=== PATIENT | male | born 1970 | race Caucasian/White ===

== ENCOUNTER 2019-11-18 09:31 | Inpatient (IN) | payer MEDICAID, OTHER ==
[~2019-11-18] VITALS: Ht 160 cm; Wt 83.9 kg
[~2019-11-18 09:31] MED LIST: DIVA500T1 PO; WARF4TAB PO
--- NOTE | 2019-11-18 09:34 | NUR ---
Patient ambulated to bed 6. RN evaluating patient at bedside.
[2019-11-18 09:38] VITALS: BP 132/75
[2019-11-18] MEDS ORDERED: NACL 0.9% 1,000 ML IV ONE ×2 (09:45→10:35)
--- NOTE | 2019-11-18 09:55 | NUR ---
clinical laboratory technician at bedside.
[2019-11-18 10:00] LABS: BASOPHILS # (AUTO) 0.1 K/uL (0.00-0.22); BASOPHILS % (AUTO) 1.1 % (0.0-2.0); EOSINOPHILS # (AUTO) 0.1 K/uL (0-0.4); EOSINOPHILS % (AUTO) 1.5 % (0.0-4.0); HEMATOCRIT 43.7 % (36-52); HEMOGLOBIN 14.5 g/dL (12.0-18.0); LYMPHOCYTES # (AUTO) 1.6 K/uL (2.0-11.5); LYMPHOCYTES % (AUTO) 24.4 % (20.5-51.1); MEAN CORPUSCULAR HEMOGLOBIN 31 pg (27-31); MEAN CORPUSCULAR HGB CONC 33 g/dL (33-37); MONOCYTES # (AUTO) 0.7 K/uL (0.8-1.0); MONOCYTES % (AUTO) 10.5 % (1.7-9.3); NEUTROPHILS # (AUTO) 4.1 K/uL (1.8-7.7); NEUTROPHILS % (AUTO) 62.5 % (42.2-75.2); PLATELET COUNT (AUTO) 196 K/uL (140-450); RED BLOOD CELL COUNT(AUTO) 4.75 MIL/uL (4.20-6.10); RED CELL DISTRIBUTION WIDTH 15.1 % (11.6-13.7); WHITE BLOOD COUNT (AUTO) 6.6 K/uL (4.8-10.8)
--- NOTE | 2019-11-18 10:00 | NUR ---
49 YO MALE REFERRED FROM CLINIC FOR AFIB SYMPTOMS. UPON ARRIVAL PT WAS AFIB BUT CONVERTED OUT. 20G IV STARTED IN LEFT AC. PT STATES HIS PAIN IS 0/10. PT TAKES MEDS AT HOME FOR ANXIETY WELL HEART PROBLEMS. PT IS IPOLAR AND HAS A HX OF CABG IN 2009. PT IS RESTING IN BED AT THIS TIME WITH NO PAIN.
[2019-11-18 10:18] LABS: ALBUMIN 3.1 g/dL (3.4-5.0); ANION GAP 12.1 (8-16); CARBON DIOXIDE 25.7 mmol/L (21-32); CREATININE 0.9 mg/dL (0.6-1.3); POTASSIUM 3.8 mmol/L (3.5-5.1); TOTAL BILIRUBIN 0.5 mg/dL (0.0-1.0)
--- NOTE | 2019-11-18 10:48 | NUR ---
PT AMBULATORY TO THE RESTROOM
--- NOTE | 2019-11-18 12:04 | NUR ---
Dr. Robles is evaluating the patient at bedside.
[2019-11-18] MEDS ORDERED: ADENOSINE 6 MG/2 ML VIAL IVP ONE ×3 (12:07→12:10)
--- NOTE | 2019-11-18 12:17 | NUR ---
ADENOSINE GIVEN PER MD ORDERS. Addendum: 11/18/19 at 1220 by MEDHM ADENOSINE GIVEN PER MD ORDERS. NO ADVERSE REACTIONS. Addendum: 11/18/19 at 1224 by MEDHM ADENOSINE GIVEN 6MG AND 12MG PER MD ORDERS. MD AND 2 RNS AT BEDSIDE NO ADVERSE REACTIONS.
[2019-11-18] MEDS ORDERED: AMIODARONE IV ONE (12:25)
[2019-11-18] MEDS ORDERED: DEXTROSE 5% IV ONE (12:25)
[2019-11-18] MEDS ORDERED: AMIODARONE IV SCH (12:43)
[2019-11-18] MEDS ORDERED: DEXTROSE 5% IV SCH (12:43)
--- NOTE | 2019-11-18 13:00 | NUR ---
RECEIVED PT FROM ED NURSES. PT TRANSFERRED INTO BED. TELE MONITOR APPLIED, WRIST BANDS APPLIED, WELL ALLERGY BAND. MRSA SWAB COLLECTED AND SENT. WENT OVER ADMISSION HISTORY WITH PT. PT TOLERATED WELL. PT CHANGED INTO BLUE GOWN. PT RESTING IN BED. ABLE TO MAKE NEEDS KNOWN. RESPIRATIONS EVEN AND UNLABORED WITH NO SOB OR RESPIRATORY DISTRESS. SKIN WARM AND DRY TO TOUCH. VITAL SIGNS UPON ADMISSION: 116/64 BP, 97.8 TEMP, 96% SPO2 ON ROOM AIR. 120 HR. SAFETY MEASURES IN PLACE. WILL CONTINUE TO MONITOR.
[2019-11-18] MEDS: NACL 0.9% 1,000 ML IV SCH (13:18)
[2019-11-18] MEDS ORDERED: ACETAMINOPHEN 325 MG TAB PO PRN (13:20)
[2019-11-18] MEDS ORDERED: DOCUSATE SODIUM 100 MG GELCAP PO PRN (13:20)
[2019-11-18] MEDS ORDERED: ONDANSETRON 4 MG/2 ML VIAL IM/IVP PRN (13:20)
[2019-11-18] MEDS ORDERED: HYDROcodone/APAP 7.5/325 MG 1 TAB PO PRN (13:20)
[2019-11-18] MEDS ORDERED: ATA25 PO (13:46)
[2019-11-18] MEDS ORDERED: HAL5 PO (13:47)
[2019-11-18] MEDS ORDERED: ABI10 PO (13:48)
[2019-11-18] MEDS ORDERED: BENZ2TAB27 PO (13:49)
[2019-11-18] MEDS ORDERED: DIVA250E1 PO ×3 (13:50→17:47)
[2019-11-18 14:00] VITALS: BP 116/64
[2019-11-18 14:00] LABS: BARBITURATE, URINE NEG. ng/ml (NEG <=200); BENZODIAZEPINE, URINE NEG. ng/mL (NEG <=200); CANNABINOID, URINE NEG. ng/mL (NEG <=50); COCAINE, URINE NEG. ng/mL (NEG <=300); OPIATE, URINE NEG. ng/mL (NEG <=2000); PHENCYCLIDINE SCREEN,URINE NEG. ng/mL (NEG <=25)
--- NOTE | 2019-11-18 14:11 | NUR ---
Patient will be admitted to care of DR SAEZ. [facility]. Will go to room 122B. Belongings list completed. Report to MELI DUVAL.
[2019-11-18 14:44] LABS: CHOL/HDL RATIO 5.9 (1-4.5); FREE T4 (FREE THYROXINE) 1.14 ng/dL (0.76-1.46); MAGNESIUM 1.4 mg/dL (1.8-2.4); PHOSPHORUS 2.4 mg/dL (2.5-4.9); THYROID STIMULATING HORMONE 1.46 uIU/mL (0.34-3.74)
--- NOTE | 2019-11-18 15:15 | NUR ---
PT RESTING IN BED UPON ARRIVAL. ABLE TO MAKE NEEDS KNOWN. RESPIRATIONS EVEN AND UNLABORED WITH NO SOB OR RESPIRATORY DISTRESS. SKIN WARM AND DRY TO TOUCH. SAFETY MEASURES IN PLACE. WILL CONTINUE TO MONITOR.
[2019-11-18 16:00] VITALS: BP 124/80
[2019-11-18] MEDS ORDERED: MAG SULF 2000 MG/WATER PREMIX 50 ML IV SCH (17:00)
[2019-11-18] MEDS ORDERED: SODIUM PHOS / POTASSIUM PHOS 1 PKT PDR PO SCH (17:00)
[2019-11-18] MEDS ORDERED: INSULIN LISPRO SLIDING SCALE 100 UNITS/ML VIAL SUBQ PRN (17:05)
[2019-11-18] MEDS ORDERED: DEXTROSE 50% 50 ML SYR IVP PRN (17:05)
--- NOTE | 2019-11-18 17:27 | NUR ---
HOURLY ROUNDING. FAMILY AT BEDSIDE. PT RESTING IN CHAIR. ABLE TO MAKE NEEDS KNOWN. RESPIRATIONS EVEN AND UNLABORED WITH NO SOB OR RESPIRATORY DISTRESS. SKIN WARM AND DRY TO TOUCH. SAFETY MEASURES IN PLACE. WILL CONTINUE TO MONITOR.
[2019-11-18] MEDS ORDERED: METOPROLOL 5 MG/5 ML VIAL IV SCH (17:30)
[2019-11-18] MEDS ORDERED: BENZ-203 PO (17:47)
[2019-11-18] MEDS ORDERED: WARF-82 PO (17:47)
[2019-11-18] MEDS ORDERED: WARF4TAB PO (17:47)
--- NOTE | 2019-11-18 18:02 | NUR ---
ADMINISTERED SCHED MED PRESCRIBED PER MD ORDER. PT TOLERATED WELL. MEDICATION EDUCATION PERFORMED. PT VERBALIZED UNDERSTANDING. SAFETY MEASURES IN PLACE. WILL CONTINUE TO MONITOR.
[2019-11-18 18:40] LABS: PROTHROMBIN TIME 12.7 secs (10.8-13.4)
--- NOTE | 2019-11-18 19:15 | NUR ---
ENDORSED AT BEDSIDE WITH NIGHTSHIFT NURSE. PT RESTING IN BED UPON ARRIVAL. RESPIRATIONS EVEN AND LABORED WITH NO SOB OR RESPIRATORY DISTRESS. SKIN WARM AND DRY TO TOUCH. SAFETY MEASURES IN PLACE. PT IS STABLE
--- NOTE | 2019-11-18 19:16 | NUR ---
RECEIVED BEDSIDE REPORT FROM MELI DUVAL FOR CONTINUITY OF CARE. AO 0 X 3, BIPOLAR , AMBULATORY W/ STANDBY ASSIST. PT'S BP IS 135/85 HR= 116, AFEBRILE RR= 18. W/ LEFT AC G 20, PATENT W/ NS AT 20 ML/ HR. WAS HERE. INFORMED HER PLAN OF CARE, PLACED PT ON LOW BED. CALL LIGHT W/IN REACH.
--- NOTE | 2019-11-18 19:16 | NUR ---
RECEIVED BEDSIDE REPORT FROM MELI DUVAL FOR CONTINUITY OF CARE. AO X 3, FORGETFUL. PT'S BP IS 135/85 HR= 116, AFEBRILE RR= 18; PT WITH IV ON THE R AC G 20, PATENT AND INTACT. PT IS A FALL RISK, ON FALL RISK PRECAUTION. PLACED IN A LOW BED POSITION. CALL LIGHT WITHIN REACH. ORIENTED TO UNIT Addendum: 11/18/19 at 4060 by Loida Morton RN DELETE WRONG PT.
--- NOTE | 2019-11-18 19:30 | NUR ---
PT'S PHYSICAL ASSESSMENT AND HISTORY TAKEN, PT FORGETFUL. Addendum: 11/19/19 at 0004 by Loida Morton RN ISRAEL MEZA WRONG PATIENT
[2019-11-18 20:00] VITALS: BP_SYST 114; BP_SYST 145; BP_DIAS 72; BP_DIAS 85
[2019-11-18] MEDS ORDERED: WARFARIN 5 MG TAB PO SCH (20:00)
--- NOTE | 2019-11-18 20:16 | NUR ---
DR. HERNANDEZ WAS INFORMED THAT INR 1.26 HIGH, PT 12.7 N; APTT 27.[address] HERNANDEZ SAID TO GIVE THE COUMADIN 5 MG
[2019-11-18] MEDS: BLOOD GLUCOSE MONITORING 1 DEV DEV FS SCH (20:17)
[2019-11-18] MEDS ORDERED: HALOPERIDOL 5 MG TAB PO SCH (21:00)
[2019-11-18] MEDS ORDERED: BENZTROPINE 1 MG TAB PO SCH (21:00)
[2019-11-18] MEDS: ARIPiprazole 10 MG TAB PO SCH (21:04)
[2019-11-18] MEDS: hydrOXYzine HCL 25 MG TAB PO SCH (21:05)
[2019-11-18] MEDS: DIVALPROEX 250 MG TABEC PO SCH (21:05)
--- NOTE | 2019-11-18 21:23 | NUR ---
PT SLEEPING COMFORTABLY, NO COMPLAINTS AT THIS TIME
--- NOTE | 2019-11-18 21:23 | NUR ---
PHOTO TAKEN ON WOUNDS, INFORMED DR. HERNANDEZ. VERBALLY ORDERED ME TO PUT IN THE ORDERS FOR WOUNDS CARRIED OUT WOUND ORDERS Addendum: 11/18/19 at 2359 by Loida Morton RN DELETE- WRONG PATIENT
[2019-11-19] VITALS: BP 145/78
--- NOTE | 2019-11-19 02:00 | NUR ---
PT SLEEPING JUST ASKED FOR SOME WATER, NO COMPLAINTS AT THIS TIME. NO MORE TREMORS NOTED
[2019-11-19] MEDS: NACL 0.9% 1,000 ML IV SCH ×2 (04:50→22:38)
[2019-11-19 06:00] VITALS: BP 140/70
--- NOTE | 2019-11-19 06:00 | NUR ---
NO COMPLAINTS AT THIS TIME, PT SLEEPING COMFORTABLY
[2019-11-19 06:07] LABS: BASOPHILS # (AUTO) 0.1 K/uL (0.00-0.22); BASOPHILS % (AUTO) 0.7 % (0.0-2.0); EOSINOPHILS # (AUTO) 0.2 K/uL (0-0.4); EOSINOPHILS % (AUTO) 2.6 % (0.0-4.0); HEMATOCRIT 39.9 % (36-52); HEMOGLOBIN 13.1 g/dL (12.0-18.0); LYMPHOCYTES # (AUTO) 2.2 K/uL (2.0-11.5); LYMPHOCYTES % (AUTO) 26.4 % (20.5-51.1); MEAN CORPUSCULAR HEMOGLOBIN 31 pg (27-31); MEAN CORPUSCULAR HGB CONC 33 g/dL (33-37); MEAN CORPUSCULAR VOLUME 92.8 fL (80-94); MONOCYTES # (AUTO) 0.9 K/uL (0.8-1.0); MONOCYTES % (AUTO) 11.2 % (1.7-9.3); NEUTROPHILS # (AUTO) 4.8 K/uL (1.8-7.7); NEUTROPHILS % (AUTO) 59.1 % (42.2-75.2); PLATELET COUNT (AUTO) 181 K/uL (140-450); WHITE BLOOD COUNT (AUTO) 8.2 K/uL (4.8-10.8)
[2019-11-19 06:13] LABS: ANION GAP 12.8 (8-16); CARBON DIOXIDE 28.2 mmol/L (21-32); CREATININE 0.8 mg/dL (0.6-1.3)
[2019-11-19 06:13] LABS: T4 (THYROXINE) 7.9 ug/dL (4.5-12.0)
[2019-11-19 06:16] LABS: MAGNESIUM 1.7 mg/dL (1.8-2.4); PHOSPHORUS 2.7 mg/dL (2.5-4.9)
[2019-11-19 06:18] LABS: CHOL/HDL RATIO 5.4 (1-4.5)
[2019-11-19] MEDS: BLOOD GLUCOSE MONITORING 1 DEV DEV FS SCH ×4 (06:53→19:34)
[2019-11-19] MEDS ORDERED: MAG SULF 2000 MG/WATER PREMIX 50 ML IV SCH (07:00)
--- NOTE | 2019-11-19 07:20 | NUR ---
ENDORSED TO AM SHIFT NURSE, FOR CONTINUITY OF CARE. FOR DR. CÁRDENAS AND DR. CARVER CONSULT
--- NOTE | 2019-11-19 07:30 | NUR ---
REPORT RECEIVED FROM NIGHT NURSE CARRI. PT AWAKE A/O ABLE TO COMMUNICATE NEEDS. PT DENIES PAIN, CHEST PAIN OR SOB. NO S/S OF ACUTE DISTRESS NOTED, CALL LIGHT AND PERSONAL ITEMS WITHIN REACH, SAFETY AND PRECAUTIONS IN PLACE. WILL CONTINUE TO MONITOR.
[2019-11-19] MEDS ORDERED: LOVENOX 1MG/KG Q12H SUBQ SCH (07:50)
[2019-11-19 08:00] VITALS: BP 143/77
[2019-11-19] MEDS: ENOXAPARIN 80 MG/0.8 ML SYR SUBQ SCH ×2 (09:00→20:04)
[2019-11-19] MEDS: DIVALPROEX 250 MG TABEC PO SCH ×2 (09:11→20:05)
[2019-11-19] MEDS: BENZTROPINE 1 MG TAB PO SCH ×2 (09:11→20:03)
[2019-11-19] MEDS: ARIPiprazole 10 MG TAB PO SCH ×2 (09:11→20:03)
[2019-11-19] MEDS: hydrOXYzine HCL 25 MG TAB PO SCH (09:11)
[2019-11-19] MEDS: ASPIRIN 81 MG TAB.CHEW PO SCH (09:13)
--- NOTE | 2019-11-19 09:13 | NUR ---
PATIENT HAS BEEN SCREENED AND CATEGORIZED LOW NUTRITION RISK. PATIENT WILL BE SEEN WITHIN 7 DAYS OF ADMISSION. 2.10.[address]
--- NOTE | 2019-11-19 09:30 | NUR ---
PT AWAKE A/O ABLE TO COMMUNICATE NEEDS. NOTIFIED THAT PER MD HE WILL NEED TO PROVIDED A URINE SAMPLE FOR UA, PT AGREEABLE. PT DENIES PAIN, CHEST PAIN OR SOB AT THIS TIME. NO S/S OF ACUTE DISTRESS NOTED, CALL LIGHT AND PERSONAL ITEMS WITHIN REACH, SAFETY AND PRECAUTIONS IN PLACE. WILL CONTINUE TO MONITOR.
[2019-11-19] MEDS ORDERED: METOPROLOL 25 MG TAB PO SCH ×2 (09:50→18:00)
--- NOTE | 2019-11-19 10:30 | NUR ---
SPECIMEN FOR US COLLECTED AT DELIVERED TO LAB.
[2019-11-19 11:30] LABS: APPEARANCE,URINE CLEAR (CLEAR); BILIRUBIN,URINE NEGATIVE (NEGATIVE); BLOOD, URINE TRACE-I (NEGATIVE); COLOR,URINE YELLOW (YELLOW); LEUKOCYTE ESTERASE ,URINE NEGATIVE (NEGATIVE); NITRITE, URINE NEGATIVE (NEGATIVE); UGLUCOSE NEGATIVE (NEGATIVE)
--- NOTE | 2019-11-19 11:30 | NUR ---
PT REMAINS A/O, ABLE TO COMMUNICATE NEEDS. VISITORS AT BEDSIDE. PT APPEARS COMFORTABLE, DENIES PAIN, NO TREMORS NOTED, NO S/S OF ACUTE DISTRESS NOTED, CALL LIGHT AND PERSONAL ITEMS WITHIN REACH, SAFETY AND PRECAUTIONS IN PLACE. WILL CONTINUE TO MONITOR.
[2019-11-19 12:00] VITALS: BP 123/82
[2019-11-19 12:02] LABS: RBC,URINE 0-5 /HPF (0-5); WBC,URINE 0-5 /HPF (0-5)
--- NOTE | 2019-11-19 14:15 | NUR ---
PT REMAIN A/O ABLE TO COMMUNICATE NEEDS, PT DENIES PAIN, CP, NO TREMORS NOTED. CALL LIGHT AND PERSONAL ITEMS REMAIN WITHIN EASY REACH CALL LIGHT AND SAFETY PRECAUTIONS IN PLACE, WILL CONTINUE TO MONITOR.
--- NOTE | 2019-11-19 14:45 | NUR ---
IFEANYI assessment/discharge plan: Basic Screen: Yes Name: Glenna Christine Home Relationship: Pre-Admission Living Arrangements: Lives with Other Other: Glenna Christine Prior ADL Independent Current Home Health Name/Tel: N/A Current DME/02 Name/Tel: N/A Current Hospice Name/Tel: N/A Current Dialysis Name/Tel: N/A Healthcare Decision Maker: Patient Advance Directive No Information Taught: Community Resources Person Taught: Patient Teaching Tools: Community Resources Verbal Factors Affecting Learning: None Participation Level: Active Evaluation: Gestures Understanding Verbalizes Understanding Educator: IFEANYI Choudhary Discipline: Case Mgt/Social Svcs Tentative Discharge Plan Summary: Patient is a 49 year old male admitted for tachycardia. I met with patient at bedside. Patient alert and oriented x4. Patient speaks Swedish. Patient lives at home with his Glenna Christine and plans to return home upon discharge. Patient's pcp is Mario Brown and he does not have any difficulty filling his prescriptions at pharmacy. He denied alcohol/substance abuse. He told me he was diagnosed with bipolar disorder and sees a psychiatrist every 2 months in [place], [place]. He does not know name of psychiatrist or name of company where psychiatrist is. He reported he takes medication for bipolar disorder. Patient's son Shorty Christine helps patient with transportation. Patient refused information on Advance Directive. I provided him with education on [employer] www.[email or web address] for community resources. Polishing Pad Mounter and/or Instructor Substitute Cosmetology will follow up as needed. Signature: IFEANYI Choudhary Date: Nov 19, 2019
[2019-11-19 16:00] VITALS: BP 120/66
[2019-11-19] MEDS: WARFARIN 1 MG TAB PO SCH (16:38)
--- NOTE | 2019-11-19 17:15 | NUR ---
PT REMAIN A/O ABLE TO COMMUNICATE NEEDS, WATCHING TV, APPEARS COMFORTABLE, DENIES PAIN, CP, NO TREMORS NOTED. CALL LIGHT AND PERSONAL ITEMS REMAIN WITHIN EASY REACH CALL LIGHT AND SAFETY PRECAUTIONS IN PLACE, WILL CONTINUE TO MONITOR.
--- NOTE | 2019-11-19 19:00 | NUR ---
PT REMAINS A/O ABLE TO COMMUNICATE NEEDS, NO S/S OF ACUTE DISTRESS NOTED, CALL LIGHT AND PERSONAL ITEMS IN REACH, SAFETY PRECAUTIONS IN PLACE, REPORT ENDORSED TO ONCOMING SHIFT.
--- NOTE | 2019-11-19 19:23 | NUR ---
RECEIVED PT FROM AM SHIFT,BRIAN RN PT AWAKE A, AO O X 4, ABLE TO COMMUNICATE NEEDS.AMBULATORY W/ STANDY ASSIST. PT DENIES PAIN, CHEST PAIN OR SOB AT THIS TIME. WITH NS L AC G 20 NS AT 60ML/HR. NO S/S OF ACUTE DISTRESS NOTED, CALL LIGHT EASY WITHIN REACH, SAFETY AND PRECAUTIONS IN PLACE. WILL CONTINUE TO MONITOR.
[2019-11-19 20:00] VITALS: BP 125/81
--- NOTE | 2019-11-19 22:51 | NUR ---
PT'S ABLE TO GO TO BATHROOM, STEADY GAIT W/ STANDBY ASSIST. VOIDED
--- NOTE | 2019-11-19 23:41 | NUR ---
PT SLEEPING COMFORTABLY, NO COMPLAINTS AT THIS TIME
[2019-11-20] VITALS: BP 128/76
[2019-11-20] MEDS: NACL 0.9% 1,000 ML IV SCH (02:44)
--- NOTE | 2019-11-20 02:51 | NUR ---
NO COMPLAINTS AT THIS TIME, ASKING FOR THE TIME . SAID HE WAS ABLE TO GO TO SLEEP
[2019-11-20 04:00] VITALS: BP 136/78
[2019-11-20] MEDS: BLOOD GLUCOSE MONITORING 1 DEV DEV FS SCH (06:08)
[2019-11-20 06:11] LABS: BASOPHILS # (AUTO) 0.1 K/uL (0.00-0.22); EOSINOPHILS # (AUTO) 0.2 K/uL (0-0.4); EOSINOPHILS % (AUTO) 3.7 % (0.0-4.0); HEMATOCRIT 40.2 % (36-52); HEMOGLOBIN 13.4 g/dL (12.0-18.0); LYMPHOCYTES # (AUTO) 2.1 K/uL (2.0-11.5); LYMPHOCYTES % (AUTO) 30.8 % (20.5-51.1); MEAN CORPUSCULAR HEMOGLOBIN 31 pg (27-31); MEAN CORPUSCULAR HGB CONC 33 g/dL (33-37); MEAN CORPUSCULAR VOLUME 91.7 fL (80-94); MONOCYTES # (AUTO) 0.8 K/uL (0.8-1.0); MONOCYTES % (AUTO) 12.6 % (1.7-9.3); NEUTROPHILS # (AUTO) 3.5 K/uL (1.8-7.7); NEUTROPHILS % (AUTO) 51.9 % (42.2-75.2); PLATELET COUNT (AUTO) 180 K/uL (140-450); RED BLOOD CELL COUNT(AUTO) 4.38 MIL/uL (4.20-6.10); RED CELL DISTRIBUTION WIDTH 15.1 % (11.6-13.7); WHITE BLOOD COUNT (AUTO) 6.7 K/uL (4.8-10.8)
[2019-11-20 06:33] LABS: ANION GAP 11.2 (8-16); CARBON DIOXIDE 29.9 mmol/L (21-32); CREATININE 0.8 mg/dL (0.6-1.3); POTASSIUM 4.1 mmol/L (3.5-5.1); PROTHROMBIN TIME 15.5 secs (10.8-13.4)
[2019-11-20 06:46] LABS: MAGNESIUM 1.6 mg/dL (1.8-2.4); PHOSPHORUS 2.9 mg/dL (2.5-4.9)
--- NOTE | 2019-11-20 07:15 | NUR ---
RECEIVED PATIENT FROM MANAGER MASS NURSE FOR CONTINUITY OF CARE. PATIENT IS AAOX4, SETSWANA AND NAURUAN SPEAKING. RESPIRATIONS EVEN AND UNLABORED, ROOM AIR. VISIBLE CHEST RISE NOTED. ON TELE MONITORING. ABDOMEN ROUND, NONTENDER. NO C/O NAUSEA OR VOMITING. SKIN WARM, DRY, AND INTACT. IV IN THE LEFT AC G20 RUNNING NS AT 60 ML/HR. IV PATENT. PATIENT IS AMBULATORY. BED IN LOW POSITION. CALL LIGHT IS WITHIN REACH.
[2019-11-20 08:00] VITALS: BP 117/69
[2019-11-20] MEDS: METOPROLOL 50 MG TAB PO SCH ×2 (08:19→20:26)
[2019-11-20] MEDS: BENZTROPINE 1 MG TAB PO SCH ×2 (08:20→20:25)
--- NOTE | 2019-11-20 08:20 | NUR ---
GIVEN MORNING MEDICATIONS PO. LOVENOX IN THE RIGHT UPPER ARM. PLATELET IS 180. PATIENT TOLERATED WELL. EXPLAINED TO PATIENT MEDICATIONS. PATIENT VERBALIZE UNDERSTANDING. CALL LIGHT IS WITHIN REACH. WILL CONTINUE TO MONITOR
[2019-11-20] MEDS: DIVALPROEX 250 MG TABEC PO SCH ×2 (08:21→20:25)
[2019-11-20] MEDS: ARIPiprazole 10 MG TAB PO SCH ×2 (08:22→20:25)
[2019-11-20] MEDS: ASPIRIN 81 MG TAB.CHEW PO SCH (08:23)
--- NOTE | 2019-11-20 08:25 | NUR ---
DR. MARIE CAME TO EXAMINED THE PATIENT.
[2019-11-20] MEDS: ENOXAPARIN 80 MG/0.8 ML SYR SUBQ SCH ×2 (08:26→20:31)
[2019-11-20] MEDS ORDERED: METOPROLOL 25 MG TAB PO SCH (09:00)
[2019-11-20] MEDS ORDERED: MAG SULF 2000 MG/WATER PREMIX 100 ML IV SCH (09:00)
[2019-11-20] MEDS ORDERED: METOPROLOL SUCCINATE 50 MG TABER PO SCH (09:00)
--- NOTE | 2019-11-20 09:13 | NUR ---
PATIENT IS AMBULATING AROUND THE UNIT AT THIS TIME. PATIENT DENIES CHEST PAIN OR ANY DISCOMFORT. WILL CONTINUE TO MONITOR
--- NOTE | 2019-11-20 09:33 | NUR ---
HANG MAG SULFATE VIA IVF. MAG LEVEL IS 1.6. EXPLAINED TO PATIENT MED AND SIDE EFFECTS. PATIENT VERBALIZED UNDERSTANDING. BED IN LOW POSITION. CALL LIGHT IS WITHIN REACH. WILL CONTINUE TO MONITOR
--- NOTE | 2019-11-20 10:32 | NUR ---
PATIENT IS SLEEPING AT THIS TIME BUT OPEN EYES WHEN NAME IS CALLED. PATIENT DENIES SOB, CHEST PAIN, OR ANY DISCOMFORT. BED IN LOW POSITION. CALL LIGHT IS WITHIN REACH. WILL CONTINUE TO MONITOR
--- NOTE | 2019-11-20 11:16 | NUR ---
EKG WAS DONE
[2019-11-20 12:00] VITALS: BP 134/70
--- NOTE | 2019-11-20 12:03 | NUR ---
VITAL SIGNS TAKEN. PATIENT DENIES ANY PAIN. NO CHEST PAIN. WILL CONTINUE TO MONITOR
--- NOTE | 2019-11-20 12:13 | NUR ---
PATIENT IS EATING LUNCH AT THIS TIME. FAMILY AT BEDSIDE.
--- NOTE | 2019-11-20 12:30 | NUR ---
DR. JURADO SPOKE WITH THE PATIENT. THE PATIENT ASKED IF HE WILL BE DISCHARGE. DR. JURADO STATED NO BECAUSE PATIENT'S INR IS STILL NOT TO THE LEVEL OF 3.
--- NOTE | 2019-11-20 14:42 | NUR ---
PATIENT IS AWAKE, WATCHING TV. PATIENT DENIES CHEST PAIN, SOB, OR ANY DISCOMFORT. BED IN LOW POSITION. CALL LIGHT IS WITHIN REACH. WILL CONTINUE TO MONITOR.
[2019-11-20 16:00] VITALS: BP 120/80
--- NOTE | 2019-11-20 16:04 | NUR ---
VITAL SIGNS TAKEN. PATIENT DENIES ANY PAIN. NO SOB. NO CHEST PAIN. BED IN LOW POSITION. CALL LIGHT IS WITHIN REACH. WILL CONTINUE TO MONITOR
[2019-11-20] MEDS ORDERED: WARFARIN 5 MG TAB PO SCH (17:00)
--- NOTE | 2019-11-20 17:05 | NUR ---
GIVEN WARFARIN PO. INR IS 1.54. PT IS 15.5. EXPLAINED TO PATIENT MED. PATIENT VERBALIZED UNDERSTANDING. BED IN LOW POSITION. CALL LIGHT IS WITHIN REACH. WILL CONTINUE TO MONITOR
--- NOTE | 2019-11-20 18:30 | NUR ---
HANG NEW BAG OF NS AT RATE OF 60 ML/HR. PATIENT IS EATING DINNER AT THIS TIME. NO SIGNS OF DISTRESS NOTED. BED IN LOW POSITION. CALL LIGHT IS WITHIN REACH.
--- NOTE | 2019-11-20 19:16 | NUR ---
ENDORSED PATIENT TO THE BRIQUETTER OPERATOR NURSE FOR CONTINUITY OF CARE. PATIENT IS IN STABLE CONDITION.
--- NOTE | 2019-11-20 19:17 | NUR ---
RECEIVED PATIENT FROM DAY SHIFT NURSE FOR CONTINUITY OF CARE. RESPIRATIONS EVEN AND UNLABORED WITH ROOM AIR. VISIBLE CHEST RISE NOTED. ON TELE MONITORING. NO C/O NAUSEA OR VOMITING. SKIN WARM, DRY, AND INTACT. IV SITE ON THE LAC G20 RUNNING NS AT 60 ML/HR. IV PATENT, INTACT, AND ASYMPTOMATIC. PATIENT IS AMBULATORY. BED IN LOW POSITION. CALL LIGHT IS WITHIN REACH.
[2019-11-20 20:00] VITALS: BP 133/77
--- NOTE | 2019-11-20 20:31 | NUR ---
GIVEN RESHMA FREDERICK DEPAKOTE, METOPROLOL, ENOXAPARIN MD ORDERED. PT TOLERATED WELL.
--- NOTE | 2019-11-20 22:18 | NUR ---
PT SLEEPING IN BED COMFORTABLY. NO ACUTE DISTRESS NOTED. BED IN LOW POSITION, CALL LIGHT WITHIN REACH.
[2019-11-21] VITALS: BP 117/75
--- NOTE | 2019-11-21 00:08 | NUR ---
PT SLEEPING IN BED COMFORTABLY. NO ACUTE DISTRESS NOTED.
--- NOTE | 2019-11-21 02:22 | NUR ---
PT SLEEPING IN BED COMFORTABLY. NO ACUTE DISTRESS NOTED.
[2019-11-21 04:00] VITALS: BP 139/83
--- NOTE | 2019-11-21 04:00 | NUR ---
VS CHECKED, WITHIN PT'S BASELINE. WILL CONTINUE TO MONITOR.
--- NOTE | 2019-11-21 06:44 | NUR ---
PT IN STABLE CONDITION, WILL ENDORSE PT TO DAY SHIFT NURSE FOR CONTINUOUS CARE.
[2019-11-21 06:46] LABS: BASOPHILS % (AUTO) 0.8 % (0.0-2.0); EOSINOPHILS # (AUTO) 0.3 K/uL (0-0.4); EOSINOPHILS % (AUTO) 4.8 % (0.0-4.0); HEMATOCRIT 41.2 % (36-52); HEMOGLOBIN 13.7 g/dL (12.0-18.0); LYMPHOCYTES % (AUTO) 32.8 % (20.5-51.1); MEAN CORPUSCULAR HEMOGLOBIN 31 pg (27-31); MEAN CORPUSCULAR HGB CONC 33 g/dL (33-37); MEAN CORPUSCULAR VOLUME 92.6 fL (80-94); MONOCYTES # (AUTO) 0.8 K/uL (0.8-1.0); MONOCYTES % (AUTO) 13.2 % (1.7-9.3); NEUTROPHILS % (AUTO) 48.4 % (42.2-75.2); PLATELET COUNT (AUTO) 157 K/uL (140-450); RED BLOOD CELL COUNT(AUTO) 4.45 MIL/uL (4.20-6.10); RED CELL DISTRIBUTION WIDTH 15.4 % (11.6-13.7); WHITE BLOOD COUNT (AUTO) 6.2 K/uL (4.8-10.8)
[2019-11-21] MEDS ORDERED: METOPROLOL 50 MG TAB PO SCH (07:00)
--- NOTE | 2019-11-21 07:10 | NUR ---
RECEIVED PATIENT FROM GO GO DANCER NURSE FOR CONTINUITY OF CARE. PATIENT IS AAOX4, SERBIAN AND EQUATORIAL GUINEAN SPEAKING. RESPIRATIONS EVEN AND UNLABORED, ROOM AIR. VISIBLE CHEST RISE NOTED. ON TELE MONITORING. ABDOMEN ROUND, NONTENDER. NO C/O NAUSEA OR VOMITING. SKIN WARM, DRY, AND INTACT. IV IN THE LEFT AC G20 RUNNING NS AT 60 ML/HR. IV PATENT. PATIENT IS AMBULATORY. BED IN LOW POSITION. CALL LIGHT IS WITHIN REACH. WILL CONTINUE TO MONITOR
[2019-11-21 07:42] LABS: MAGNESIUM 1.6 mg/dL (1.8-2.4); PHOSPHORUS 3.4 mg/dL (2.5-4.9)
[2019-11-21 07:46] LABS: ANION GAP 10.8 (8-16); CARBON DIOXIDE 27.3 mmol/L (21-32); CREATININE 0.7 mg/dL (0.6-1.3); POTASSIUM 4.1 mmol/L (3.5-5.1)
--- NOTE | 2019-11-21 07:50 | NUR ---
GIVEN METOPROLOL 100 MG PO. EXPLAINED TO PATIENT MED. PATIENT VERBALIZED UNDERSTANDING. BP IS 148/82. HR 117. O2SAT 98% ROOM AIR. WILL CONTINUE TO MONITOR
--- NOTE | 2019-11-21 07:58 | NUR ---
DR. SAEZ AND THE RESIDENT DOCTORS MADE ROUNDS.
[2019-11-21 08:00] VITALS: BP 148/82
--- NOTE | 2019-11-21 08:36 | NUR ---
DR. MARIE CAME AND EXAMINED THE PATIENT.
[2019-11-21] MEDS: ARIPiprazole 10 MG TAB PO SCH ×2 (08:39→20:42)
[2019-11-21] MEDS: BENZTROPINE 1 MG TAB PO SCH ×2 (08:39→20:40)
[2019-11-21] MEDS: DIVALPROEX 250 MG TABEC PO SCH ×2 (08:40→20:42)
[2019-11-21] MEDS: ASPIRIN 81 MG TAB.CHEW PO SCH (08:40)
[2019-11-21] MEDS: NACL 0.9% 1,000 ML IV SCH (08:47)
[2019-11-21] MEDS: ENOXAPARIN 80 MG/0.8 ML SYR SUBQ SCH ×2 (08:47→20:34)
--- NOTE | 2019-11-21 08:47 | NUR ---
ADMINISTERED MORNING MEDICATIONS PO. LOVENOX SUBQ IN THE LEFT UPPER ARM. PLATELET 157, INR 1.79, PT 18. EXPLAINED TO PATIENT MEDICATIONS AND SIDE EFFECTS. PATIENT VERBALIZED UNDERSTANDING. WILL CONTINUE TO MONITOR
--- NOTE | 2019-11-21 10:47 | NUR ---
PATIENT IS SLEEPING AT THIS TIME. NO SIGNS OF DISTRESS NOTED. BED IN LOW POSITION. CALL LIGHT IS WITHIN REACH. WILL CONTINUE TO MONITOR.
[2019-11-21 12:00] VITALS: BP 114/51
--- NOTE | 2019-11-21 12:04 | NUR ---
VITAL SIGNS CHECK. PATIENT DENIES ANY PAIN. PATIENT DENIES CHEST PAIN. BED IN LOW POSITION. CALL LIGHT IS WITHIN REACH. WILL CONTINUE TO MONITOR
[2019-11-21] MEDS ORDERED: MAGNESIUM OXIDE 400 MG TAB PO SCH (12:18)
--- NOTE | 2019-11-21 12:20 | NUR ---
GIVEN MAG OX PO PER MD ORDER. MAG LEVEL IS 1.6. EXPLAINED TO PATIENT MED AND SIDE EFFECTS. PATIENT VERBALIZED UNDERSTANDING. WILL CONTINUE TO MONITOR
--- NOTE | 2019-11-21 14:03 | NUR ---
PATIENT IS SLEEPING AT THIS TIME. NO SIGNS OF DISTRESS NOTED. BED IN LOW POSITION. CALL LIGHT IS WITHIN REACH. WILL CONTINUE TO MONITOR
--- NOTE | 2019-11-21 14:48 | NUR ---
DR. JURADO SPOKE WITH THE PATIENT. HE ORDERED DIXOGIN. WILL ADMINISTER IT
[2019-11-21] MEDS ORDERED: DIGOXIN 0.25 MG TAB PO SCH ×2 (15:00→21:00)
--- NOTE | 2019-11-21 15:00 | NUR ---
GIVEN DIGOXIN PO. APICAL PULSE 120. EXPLAINED TO PATIENT MEDICATION AND SIDE EFFECTS. PATIENT VERBALIZED UNDERSTANDING. NOTIFIED UX MANAGER. WILL CONTINUE TO MONITOR
[2019-11-21 16:00] VITALS: BP 112/77
--- NOTE | 2019-11-21 16:06 | NUR ---
DC PLANN[age] YRS OLD MALE PATIENT WAS ADMITTED FROM HOME WITH A DX OF TACHYCARDIA ,EKG ECTOPIC ATRIAL TACHYCARDIA HR 120 PT HAS A HX OF BIPOLAR DISORDER , DEPRESSION MECHANICAL MITRAL VALVE REPLACEMENT. ADMINISTERED IVF ADENOLIN 6MG IVP FOLLOWED BY 12 MG IVP CARDIO CONSULT WITH DR CARVER. DC PLAN TO GO HOME WHEN STABLE CM TO FOLLOW. Addendum: 11/22/19 at 1048 by Brenda Zabala CONTACTED [employer] AT [phone] OPT 6, ABLE TO SPEAK TO TERENCE. SHE STATED THE CM IN CHARGE OF THIS PATIENT IS NATALYA AT [phone]. CONTACTED THE PROVIDED NUMBER, ABLE TO SPEAK TO FRANK HOANG, SHE STATED THAT IF IT'S ONLY FOR LOVENOX ADMINISTRATION THEY WILL NOT AUTHORIZE HH UNLESS THERE WILL BE ANY OTHER NEEDS. SHE ALSO STATED SQ LOVENOX INJECTION CAN BE TAUGHT PRIOR TO DISCHARGE. DR. JURADO MADE AWARE. Addendum: 11/22/19 at 1103 by Brenda Zabala H/H ORDER CANCELLED BY DR. JURADO. RFANK HOANG MADE AWARE.
[2019-11-21] MEDS: WARFARIN 1 MG TAB PO SCH (17:13)
--- NOTE | 2019-11-21 17:13 | NUR ---
GIVEN COUMADIN 4MG PO. PT IS 18, INR IS 1.79. EXPLAINED TO PATIENT MED. EDUCATED PATIENT TO AVOID FOODS HIGH IN VITAMIN K, CRANBERRY JUICE. PATIENT VERBALIZED UNDERSTANDING. BED IN LOW POSITION. CALL LIGHT IS WITHIN REACH. WILL CONTINUE TO MONITOR
--- NOTE | 2019-11-21 17:41 | NUR ---
PATIENT IS AWAKE, LAYING IN BED. NO SIGNS OF DISTRESS. NO SOB. NO CHEST PAIN OR ANY DISCOMFORT. BED IN LOW POSITION. CALL LIGHT IS WITHIN REACH. WILL CONTINUE TO MONITOR
--- NOTE | 2019-11-21 18:18 | NUR ---
PATIENT IS AWAKE, TALKING TO THE FAMILY MEMBERS. WILL CONTINUE TO MONITOR
--- NOTE | 2019-11-21 18:36 | NUR ---
DR. JURADO SPOKE WITH THE PATIENT. PATIENT WILL BE STAYING TONIGHT. HR IS STILL HIGH 120S. FAMILY IS AWARE
--- NOTE | 2019-11-21 19:12 | NUR ---
ENDORSED PATIENT TO EQUIPMENT SALES SPECIALIST NURSE FOR CONTINUITY OF CARE. NO CHEST PAIN. DENIES ANY OTHER DISCOMFORT. PATIENT IS IN STABLE CONDITION
--- NOTE | 2019-11-21 19:15 | NUR ---
RECEIVED PT FROM RN PT IS AAOX4 ON BED REST IV ON LEFT FA INFUSING WELL DENIES ANY PLAIN T THIS TIME ON TELEMETRY ATRIAL FLUTTER MEDIC WILL BE GIVEN ORDER INITIAL ASSESSMENT DONE
[2019-11-21 20:00] VITALS: BP 138/70
[2019-11-21] MEDS: METOPROLOL 50 MG TAB PO SCH (20:44)
--- NOTE | 2019-11-21 21:30 | NUR ---
PT REMAIN MORE STABLE AFTER LANOXINAND METOPROLOL GIVEN ORDER , PT DENIES ANY PAIN OR DISCOMFORT
[2019-11-22] VITALS: BP 118/80
[2019-11-22] MEDS: NACL 0.9% 1,000 ML IV SCH ×2 (00:38→02:59)
--- NOTE | 2019-11-22 01:00 | NUR ---
PT RESTING ON BED ON TELEMETRY HR 120 ON CLOSE MONITORING FOR TACHYCARDIA
[2019-11-22] MEDS ORDERED: DIGOXIN 0.25 MG TAB PO ONE (02:45)
[2019-11-22 04:00] VITALS: BP 133/87
--- NOTE | 2019-11-22 04:00 | NUR ---
SPONGE BATH GIVEN LINEN CHANGED PT ON TELE HR 119 NOT DISTRESS NOTED PT GETTING SLEEP
--- NOTE | 2019-11-22 06:40 | NUR ---
PT DENIES ANY PAIN OR DISCOMFORT ON TELEMETRY 120, PT WILL BE ENDORSED TO DAY SHIFT NURSE FOR CONTINUE OF CARE
--- NOTE | 2019-11-22 07:00 | NUR ---
RECEIVED BEDSIDE REPORT FROM NIGHT NURSE, PT IS AAOX4, PT IS STABLE, NO SIGNS OF DISTRESS NOTED, PT HAS RFA 22G RUNNING NORMAL SALINE AT 60 ML, INTRODUCE SELF, UPDATE WHITEBOARD, CALL LIGHT WITHIN REACH, WILL CONTINUE TO MONITOR,
[2019-11-22 08:00] VITALS: BP 140/89
[2019-11-22] MEDS ORDERED: DILTIAZEM 25 MG/5 ML VIAL IVP SCH (08:30)
--- NOTE | 2019-11-22 08:50 | NUR ---
GAVE PT ORDERED MEDICATION, PT IS STABLE, EDUCATION GIVEN, PT VERBALIZE UNDERSTANDING, CALL LIGHT WITHIN REACH.
[2019-11-22] MEDS: ASPIRIN 81 MG TAB.CHEW PO SCH (08:54)
--- NOTE | 2019-11-22 08:55 | NUR ---
PT RECEIVED CARDIZEM IVP PER MD ORDER, HEART RATE DOWN TO 66 BPM, DR JURADO AT BEDSIDE MONITORING PT, PT IS STABLE, NO SIGNS OF DISTRESS NOTED, WILL CONTINUE TO MONITOR.
[2019-11-22] MEDS: DIVALPROEX 250 MG TABEC PO SCH (08:59)
[2019-11-22] MEDS: BENZTROPINE 1 MG TAB PO SCH (09:00)
[2019-11-22] MEDS: METOPROLOL 50 MG TAB PO SCH (09:00)
[2019-11-22] MEDS: ARIPiprazole 10 MG TAB PO SCH (09:03)
[2019-11-22] MEDS: ENOXAPARIN 80 MG/0.8 ML SYR SUBQ SCH (09:03)
--- NOTE | 2019-11-22 11:00 | NUR ---
PT SITTING IN BED, NO SIGNS OF DISTRESS NOTED, PT IS STABLE, CALL LIGHT WITHIN REACH.
[2019-11-22 12:00] VITALS: BP 121/71
[2019-11-22] MEDS ORDERED: BENZ-203 PO (12:39)
[2019-11-22] MEDS ORDERED: WARF-82 PO (12:39)
[2019-11-22] MEDS ORDERED: LOV40I SUBQ (12:39)
[2019-11-22] MEDS ORDERED: DILT60TA97 PO (12:39)
--- NOTE | 2019-11-22 13:16 | NUR ---
PT IS RESTING IN BED, NO SIGNS OF DISTRESS NOTED, PT IS STABLE, CALL LIGHT WITHIN REACH.
--- NOTE | 2019-11-22 13:48 | NUR ---
DEMONSTRATE HOW TO GIVE SUBCUTANEOUS INJECTION TO HIMSELF, PT RETURN DEMONSTRATE, VERBALIZE UNDERSTANDING, DID TEACHING OF ENOXAPARIN AND HANDOUT GIVEN TO PT, PT VERBALIZE UNDERSTANDING,
[2019-11-22] MEDS ORDERED: MAGNESIUM OXIDE 400 MG TAB PO SCH (14:00)
== END 2019-11-22 15:00 | disposition home or self-care (01) | DRG 309 ==
LOC: MED 09:31 → MTU 13:18
PROVIDERS: ADMIT General Practice; ATTEND General Practice
DX: I48.92 Unspecified atrial flutter (principal); E44.1 Mild protein-calorie malnutrition; E83.42 Hypomagnesemia; E83.39 Other disorders of phosphorus metabolism; F31.9 Bipolar disorder, unspecified; R73.9 Hyperglycemia, unspecified; E78.5 Hyperlipidemia, unspecified; R73.03 Prediabetes; G25.70 Drug induced movement disorder, unspecified; T50.905A Adverse effect of unspecified drugs, medicaments and biological substances, initial encounter; Y92.89 Other specified places as the place of occurrence of the external cause; Z68.31 Body mass index [BMI] 31.0-31.9, adult; Z79.01 Long term (current) use of anticoagulants; Z91.013 Allergy to seafood; Z79.899 Other long term (current) drug therapy; Z95.1 Presence of aortocoronary bypass graft; Z95.2 Presence of prosthetic heart valve
CPT/HCPCS: 36415; 71045; 80048; 80053; 80305; 81001; 82150; 82948; 83036; 83690; 83735; 83880; 84100; 84436; 84439; 84443; 84479; 84484; 85025; 85379; 85610; 85730; 87040; 87081; 93005; 93970; 96361; 96365; 96375; 99285; J0153; J0282; J1630; J1650; J3475; J3490; J7030; J7060; Q0092